=== PATIENT | male | born 1980 | race Caucasian/White ===

== ENCOUNTER 2019-01-28 11:52 | Outpatient (REF) | payer MEDICAID, SELFPAY ==
[2019-01-28 19:55] LABS: Anion Gap 6.5 mmol/L (3-11); BUN 14 mg/dL (7-18); CO2 29.5 mmol/L (21.0-32.0); Calcium 8.8 mg/dL (8.5-10.1); Chloride 100 mmol/L (98-107); Glucose 78 mg/dL (70-100); Potassium 4.4 mmol/L (3.5-5.1); Sodium 136 mmol/L (136-145)
== END 2019-01-28 12:12 ==
LOC: NCHCN 11:52
PROVIDERS: PCP Nurse Practitioner Family; Visit Provider Nurse Practitioner Family
DX: R35.0 Frequency of micturition (principal)
CPT/HCPCS: 80048

== ENCOUNTER 2019-03-08 03:43 | Outpatient (CLI) | payer MEDICAID, SELFPAY ==
[2019-03-08] MEDS: Omnipaque 350 MG/ML 100 ML BTL IV (08:39)
--- NOTE | 2019-03-08 09:20 | DI.CT_ITS ---
EXAM: CT ABDOMEN PELVIS WO/W CLINICAL HISTORY: URINARY FREQUENCY, R35.0 TECHNIQUE: Images were performed before and after IV contrast as well as 7 minutes delayed images. No oral contrast was administered. FINDINGS: The precontrast images show a tiny nonobstructing stone at the upper pole of the left kidney. No uret eral or bladder calculi are seen. There is a tiny cyst at the upper pole of the right kidney. There i s no evidence of renal mass or bladder mass. The bladder shows mild diffuse wall thickening which cou ld indicate cystitis. The prostate appears normal in size. The lung bases are clear. The liver, gallbladder, spleen, pancreas and adrenals appear normal. There is no bowel dilatation or inflammatory change. The appendix projects inferiorly in the right lower qu adrant and appears normal. There is a normal quantity of stool. The aorta is normal in diameter. Ther e are mild degenerative disc changes at L5-S1. IMPRESSION: Mild diffuse bladder wall thickening could indicate cystitis. There is a tiny nonobstructing stone at the upper pole of the left kidney and tiny right renal cyst.
== END 2019-03-08 04:03 ==
PROVIDERS: PCP Nurse Practitioner Family; Visit Provider Nurse Practitioner Family
DX: R35.0 Frequency of micturition (principal); N32.89 Other specified disorders of bladder; N20.0 Calculus of kidney; N28.1 Cyst of kidney, acquired
CPT/HCPCS: 74178; J3490